=== PATIENT | female | born 1945 | race Caucasian/White ===

== ENCOUNTER 2016-04-23 19:14 | Emergency (ER) | payer MEDICARE, OTHER ==
[2016-04-23 19:24] VITALS: BP 161/79
--- NOTE | 2016-04-23 23:04 | ERNOTE ---
Abdominal HPI - Narrative Date of Service: 04/23/16 - General Chief Complaint: Constipation Time Seen by Provider: 04/23/16 22:55 Source: patient Exam Limitations: no limitations - Immun/Allergies/Home Medications Immunizatons: IMMUNIZATION HX Immunizations Up to Date Yes History of Influenza Vaccine Yes Hx Pneumococcal Vaccination Yes Allergies/Adverse Reactions: Allergies amoxicillin [Amoxicillin] Allergy (Verified 04/23/16 19:26) morphine Allergy (Verified 04/23/16 19:26) Sulfa (Sulfonamide Antibiotics) Allergy (Verified 04/23/16 19:26) Home Medications: HOME MEDICATIONS Atorvastatin Calcium [Lipitor] 20 mg PO DAILY 10/12/14 [Last Taken 07/01/15] Cetirizine HCl [Zyrtec] 10 mg PO DAILY 10/12/14 [Last Taken 07/01/15] Iron Polysaccharide Complex [Novaferrum 50] 150 mg PO DAILY 10/12/14 [Last Taken 07/01/15] Levothyroxine Sodium [Tirosint] 25 mcg PO DAILY 10/12/14 [Last Taken 07/01/15] Olmesartan Medoxomil [Benicar] 50 mg PO DAILY 10/12/14 [Last Taken 07/01/15] Sertraline HCl [Zoloft] 50 mg PO DAILY 10/12/14 [Last Taken 07/01/15] Zolpidem Tartrate [Ambien] 10 mg PO HS 10/12/14 [Last Taken 06/30/15] metFORMIN HCL [Glucophage] 500 mg PO BIDWM 10/12/14 [Last Taken 07/01/15] - History of Present Illness Narrative: Claims has not had a BM for 2 weeks. She has tried a variety of laxatives but they do not seem to be working. She has some lower abdominal pain. Feels bloated. History of constipation. Timing: getting worse Quality: moderate, fullness Activities at Onset: none Associated Symptoms: Present: denies symptoms. Absent: fever/chills, shortness of breath Prior Abdominal Problems: Present: similar symptoms. Absent: recent trauma Prior Treatment: Absent: recently seen Review of Systems - Review of Systems Constitutional: Present: no symptoms reported Respiratory: Present: no symptoms reported Cardiology: Present: no symptoms reported Gastrointestinal/Abdominal: Present: constipation, abdominal pain. Absent: nausea, vomiting, diarrhea Skin: Present: no symptoms reported Neurological: Present: no symptoms reported - Patient's Past Medical History Patient History - Medical: Diabetes Type 2, Hypothyroidism Patient History - Cardiac/Respiratory: Hypertension, Hyperlipidemia Patient History - Cancer: No Hx of Cancer Patient History - Surgical Procedures: Cholecystectomy, Other - Social History Living Situations: significant other Smoking Status: Former smoker Have you smoked in the past 12 months: No Do you dip or chew tobacco: No Alcohol Use: none Drug Use: none Physical Exam - Physical Exam General Appearance: Present: wd/wn, alert, no apparent distress Eye Exam: Normal inspection: bilateral Ears, Nose, Throat: Present: normal ENT inspection Respiratory: Present: no respiratory distress, normal breath sounds, no accessory muscle use, lungs clear Cardiovascular/Chest: Present: regular rate, rhythm, no murmur Gastrointestinal/Abdominal: Present: normal bowel sounds, nontender, soft, no organomegaly, distended - mild Back Exam: Present: normal inspection, no CVA tenderness Neurological Exam: Present: alert Skin Exam: Present: normal color ED Progress - Vital Signs Patient's Vital Signs:: I have reviewed the patient's vital signs. Vital Signs: Vital Signs 04/23/16 19:21 Temperature 35.7 C L Pulse Rate 78 Respiratory 14 Rate Blood Pressure 161/79 O2 Sat by Pulse 97 Oximetry - X-Ray X-Ray #1 X-Ray: abdomen Interpretation: Reviewed by me X-ray Comments: Moderate stool. No obstruction. - Progress/Reassessment Chief Complaint: Constipation Plan - Plan Plan: Patient anxious to get home. She will go home and give self enemas. Use Citroma if needed. FU prn. Departure - Departure Clinical Impression: Constipation Disposition: Home self-care Condition: Good Instructions: Constipation, Adult, [id number] Additional Instructions: Use a fleet enema tonight. You may repeat this as needed. Take a bottle of magnesium citrate tomorrow if your symptoms persist. Referrals: Samson Mead MD [Primary Care Provider] -
== END 2016-04-23 23:14 | disposition home or self-care (01) ==
LOC: ER 19:14
DX: K59.00 Constipation, unspecified (principal); Z87.891 Personal history of nicotine dependence

== ENCOUNTER 2016-05-09 14:27 | Emergency (ER) | payer MEDICARE, OTHER ==
[2016-05-09] MEDS ORDERED: ASPIRIN 325 MG TABLET.DR PO ONE (14:34)
[2016-05-09] MEDS ORDERED: NITROGLYCERIN 0.4 MG/TAB BTL SL ONE (14:35)
[2016-05-09 14:51] LABS: Hematocrit 35.4 % (37.0-47.0); Hemoglobin 10.8 gm/dL (12.5-16.0); Mean Cell Volume 79.9 fl (78-100); Mean Corpuscular Hemoglobin 24.4 pg (27-31); Mean Corpuscular Hgb Conc 30.5 g/dl (32-36); Mean Platelet Volume 9.6 fl (6.0-9.5); Neutrophil # 4.1 K/mm3 (1.3-6.0); Neutrophil % 59.5 % (42-75.0); Platelet Count 180 K/mm3 (150-450); Red Blood Count 4.43 M/mm3 (4.2-5.4); Red Cell Distribution Width 15.5 % (11.5-14.0); White Blood Count 6.9 K/mm3 (4.0-10.5)
--- OUTSIDE RECORDS SUMMARY | 2016-05-09 14:56 | XMS REPORT | Continuity of Care Document ---
:1945 Author Organization [facility] ([facility]) Address [address] [place] [address] Phone [phone] Care Team Providers Name Role Phone Unavailable Primary Care Provider Unavailable Source Comments This disclosure is being made pursuant to the Care Everywhere program, applicable federal and state laws, and may not contain all informaitonavailable regarding this patient.[facility] ([facility]) Active Allergies and Adverse Reactions Not on File Current Medications Not on file Active Problems Not on file Social History Tobacco Use Types Packs/Day Years Used Date Never Assessed Plan of Care Health Maintenance Due Date Last Done Comments HCV Screening 1945 Hepatitis B Vaccine (1 of 3 - Primary Series) 1945 Tdap Vaccine 1956 Lipid Disorder Screening 1963 Td Vaccine 1963 Mammogram 1985 Colonoscopy 1995 Zoster Vaccine 2005 Osteoporosis Screening (DXA Bone Density) 2010 Pneumococcal Vaccine (1 of 2 - PCV13) 2010 Influenza Vaccine: Seasonal (#1) 11/01/2015 Results from Last 3 Months Not on file
[2016-05-09 15:18] LABS: ALT 21 U/L (19-67); AST 27 U/L (0-48); Alkaline Phosphatase * 74 U/L (50-170); Anion Gap 15.1 mmol/L (6.8-13.8); BUN/Creatinine Ratio 24.8 (9.0-21.6); Bilirubin, Total 0.9 mg/dL (0.0-1.1); Blood Urea Nitrogen 25 mg/dL (3-23); Ca. Corrected For Albumin 8.9 mg/dL (8.4-10.2); Calcium * 9.2 mg/dL (7.9-10.9); Carbon Dioxide 25.8 mmol/L (24-32.6); Chloride 106 mmol/L (97-106); Glucose * 119 mg/dL (70-110); Lipase 107 U/L (73-393); Potassium 3.9 mmol/L (3.4-4.6); Sodium 143 mmol/L (132-142); Total Protein 7.3 gm/dL (6.2-8.2); Troponin I Less than 0.017 ng/ml (0.00-0.10)
[2016-05-09 19:05] VITALS: BP 168/82
--- NOTE | 2016-05-09 19:40 | ERNOTE ---
Chest Pain/Cardiac HPI Date of Service: 05/09/16 Chief Complaint: Chest Pain Time Seen by Provider: 05/09/16 14:28 Source: patient Exam Limitations: no limitations Immunizations: IMMUNIZATION HX Immunizations Up to Date Yes History of Influenza Vaccine Yes Hx Pneumococcal Vaccination Yes Allergies/Adverse Reactions: Allergies amoxicillin [Amoxicillin] Allergy (Verified 05/09/16 14:36) morphine Allergy (Verified 05/09/16 14:36) Sulfa (Sulfonamide Antibiotics) Allergy (Verified 05/09/16 14:36) Home Medications: HOME MEDICATIONS Atorvastatin Calcium [Lipitor] 20 mg PO DAILY 10/12/14 [Last Taken 07/01/15] Cetirizine HCl [Zyrtec] 10 mg PO DAILY 10/12/14 [Last Taken 07/01/15] Levothyroxine Sodium [Tirosint] 25 mcg PO DAILY 10/12/14 [Last Taken 07/01/15] Sertraline HCl [Zoloft] 50 mg PO DAILY 10/12/14 [Last Taken 07/01/15] Zolpidem Tartrate [Ambien] 10 mg PO HS 10/12/14 [Last Taken 06/30/15] metFORMIN HCL [Glucophage] 500 mg PO BIDWM 10/12/14 [Last Taken 07/01/15] Losartan Potassium [Cozaar] 100 mg PO DAILY 05/09/16 [Last Taken Unknown] Narrative: Patient presents to the ED for chest pain. This started at 2pm. It was in the center of her chest. It did not seem to radiate but it made her feel SOB. No pleuritic pain. She relates she has not had a recent stress test. She relates an angiogram many years ago. She states she will get some chest pains due to anxiety but today it did not feel like that. No fever. No vomiting. She relates some pain at a hernia in her abdomen but this is not acute. Nothing seems to make this better or worse. Timing: constant Severity/Quality: moderate, pressure Location: central Chest Pain Radiation: no radiation Activities at Onset: none Modifying Factors - Improves: Present: nothing Modifying Factors - Worsens: Present: nothing Aspirin Treatment Today: provided at home Associated Symptoms: Present: shortness of breath. Absent: syncope, cough, fever/chills, vomiting Prior Chest Pain/Cardiac Workup: Reports: other - no recent stress test Review of Systems - Review of Systems Constitutional: Absent: fever ENT: Absent: sore throat Respiratory: Present: shortness of breath Cardiology: Present: chest pain Gastrointestinal/Abdominal: Present: other - she has chronic intermittent abdominal pain at a hernia site, not acute. Genitourinary: Absent: dysuria Musculoskeletal: Present: back pain, other - chronic back pain Skin: Absent: rash All Other Systems: All systems neg except as marked - Patient's Past Medical History Patient History - Medical: Anxiety, Diabetes Type 2, Hypothyroidism Patient History - Cardiac/Respiratory: No pertinent hx, Hypertension, Hyperlipidemia Patient History - Cancer: No Hx of Cancer Patient History - Surgical Procedures: Cholecystectomy, Other Patient History - Other: None - Social History Living Situations: significant other Psych History: Hx of Anxiety Alcohol Use: none Drug Use: none - Immunizations Immunizations Up to Date: Yes Hx Pneumococcal Vaccination: Yes History of Influenza Vaccine: Yes Physical Exam - Physical Exam General Appearance: Present: alert, no apparent distress Eye Exam: Normal inspection: bilateral, PERRL: bilateral Ears, Nose, Throat: Present: normal ENT inspection Neck: Present: normal inspection Respiratory: Present: no respiratory distress, normal breath sounds, no accessory muscle use, chest nontender, lungs clear Cardiovascular/Chest: Present: regular rate, rhythm, normal peripheral pulses Peripheral Pulses: N=norm/S=strong/W=weak/B=bound/A=absent: Radial (R): Normal, Radial (L): Normal Gastrointestinal/Abdominal: Present: normal bowel sounds, nondistended, soft, no organomegaly, other - mild epigastric tenderness. No guarding or rebound, no peritoneal signs. Back Exam: Present: normal range of motion, CVA tenderness (L) Extremity Exam: Present: normal inspection, other - no calf tenderness Neurological Exam: Present: alert, normal mood/affect, no motor/sensory deficits Skin Exam: Absent: skin rash ED Progress - Results and Orders Patient's Lab Results:: I have reviewed the patient's lab results. - Vital Signs Patient's Vital Signs:: I have reviewed the patient's vital signs. Vital Signs: Vital Signs 05/09/16 05/09/16 05/09/16 14:31 14:46 14:57 Temperature 36.2 C L Pulse Rate 71 71 73 Respiratory 19 17 Rate Blood Pressure 149/71 111/68 O2 Sat by Pulse 96 95 Oximetry 02/07/17 02/07/17 02/07/17 15:15 16:00 16:24 Temperature Pulse Rate 66 68 69 Respiratory 19 13 14 Rate Blood Pressure 119/71 147/69 148/73 O2 Sat by Pulse 94 96 95 Oximetry 05/09/16 05/09/16 05/09/16 16:54 17:39 18:09 Temperature Pulse Rate 68 71 69 Respiratory 11 L 22 H 16 Rate Blood Pressure 145/73 156/79 161/89 O2 Sat by Pulse 95 95 97 Oximetry 05/09/16 05/09/16 18:24 18:54 Temperature Pulse Rate 72 73 Respiratory 15 15 Rate Blood Pressure 166/77 168/82 O2 Sat by Pulse 96 95 Oximetry - EKG EKG: NSR EKG read: Reviewed by me EKG Comments: No STEMI. Non-specific ST/T wave changes. - X-Ray X-Ray #1 X-Ray: chest Interpretation: Reviewed by me X-ray Comments: NAPP. I reviewed official radiology report. - CT/Ultrasound CT/Ultrasound Narrative: I reviewed CT chest report dictated by radiology. - Progress/Reassessment Chief Complaint: Chest Pain Progress Note-Subjective: 05/09/16 19:32 Chest pain seemed to go away after NTG. I I spoke with her doctor, Dr Mead who recommended outpatient stress testing. I spoke with Dr Jones economics professor for cardiology at [facility], he will see the patient for stress testing. She wished to go home. I discussed risks and benefits. I obtained a second troponin that was negative given this. She had no recurrent CP. She chose to go home and understands risks and benefits of this approach and of outpatient management and stress testing. No PE or aortic dissection. She had some abdominal pain but relates that this is frequent for her and not why she came in. Once again offered hospital r/o but declines this. Departure - Departure Clinical Impression: Chest pain Disposition: Home self-care Condition: Stable Instructions: Nonspecific Chest Pain, [id number] Additional Instructions: Rest. Fluids. Return if you change your mind about being in the hospital, if you develop chest pain or if your condition worsens or changes in any way. Continue a daily aspirin. Call Dr Jones (Cardiology) in the morning for a stress test, his number is . I spoke with him over the phone today. Referrals: Samson Mead MD [Primary Care Provider] -
== END 2016-05-09 19:37 | disposition home or self-care (01) ==
LOC: ER 14:27
DX: R07.9 Chest pain, unspecified (principal); E11.9 Type 2 diabetes mellitus without complications; F41.9 Anxiety disorder, unspecified; E78.5 Hyperlipidemia, unspecified; E03.9 Hypothyroidism, unspecified; I10 Essential (primary) hypertension

== ENCOUNTER 2016-10-06 08:39 | Day surgery (SDC) | payer MEDICARE, OTHER ==
[~2016-10-06 08:39] MED LIST: RINGERS SOLUTION,LACTATED 1,000 ML IV PRN; ceFAZolin SODIUM 1 GM VIAL IV PRN
[2016-10-06] MEDS ORDERED: RINGERS SOLUTION,LACTATED 1,000 ML IV ONE (10:40)
--- NOTE | 2016-10-06 11:20 | OR ---
Operative Report - Dictated Report Narrative: Date: 10/06/2016 Physician: Zohaib Gunn M.D. 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 Piper Is a 71 year-old female who has been followed in my clinic with complaints of shoulder pain consistent with impingement. Physical exam and diagnostic imaging were consistent with his complaints and concern for degenerative labral tear, chromic clavicular arthrosis resulting impingement and subacromial impingement without any massive rotator cuff tear. Conservative measures have failed including, but not limited to, passage of time , activity modification, medications, physical therapy/home exercise program, or injections. The risks, benefits, and alternatives were discussed in clinic. The risks being , bleeding, infection, blood clots, nerve, tendon, ligament, blood vessel injury, persistent pain, arthrosis, stiffness, need for prolonged therapy, need for additional procedures, and persistent symptoms. Consent was obtained in the clinic. Procedure: After marking the correct extremity in the preoperative holding area, a timeout was performed in the operating room. IV antibiotics consisting of Ancef were administered prior to the procedure. A general followed by regional anesthetic was induced by the nurse battery checker. This was in the supine position, then the patient was transitioned to a beachchair position with all bony prominences well-padded, head in neutral, the nonoperative arm well supported, and the legs padded with SCDs in place. The operative shoulder was then prepped and draped in a standard sterile fashion. Preoperatively the shoulder had full passive range of motion, and no gross instability. After marking out the bony landmarks , saline was infused into the joint through a posterior lateral portal site. A landy incision was made, and the blunt trocar and cannula was introduced into the shoulder joint. An accessory portal was placed in the rotator cuff interval using a spinal needle for guidance. Upon initial evaluation, the biceps tendon showed tendinopathy and partial tear as it inserted on the labrum. The middle glenohumeral ligament was intact. Subscapularis tendon was unremarkable. The glenoid showed no arthrosis. The humeral head articular surface showed at a proximally 1 x 2 cm full-thickness loose chondral flap. The anterior labrum was frayed. The superior labrum was frayed. The pouch was unremarkable. The posterior labrum was unremarkable. The supraspinatus tendon was intact. The infraspinatus tendon was intact. Utilizing the anterior portal the biceps was tenotomized as it inserted on the labrum. The anterior labrum and superior labrum was also debrided using shaver. The shaver was then utilized in order to debride the loose chondral flap off the humeral head down to stable margin. Attention was then turned to the subacromial space. Subacromial bursectomy was performed utilizing the prior portals. The coracoacromial ligament was frayed . The bursal side of the rotator cuff demonstrated no tear. The acromial arch had an anterior lateral spur consistent with her MRI findings. Utilizing a lateral portal, a cautery device was utilized in order to skeletonize the acromion and elevated off the CA ligament. A bur was utilized in order to remove approximately 4-5 mm of bone off the anterior lateral aspect of the acromion resulting in a flattened overall acromial appearance. Attention was then turned to the distal clavicle. A longitudinal incision was made over the acromioclavicular joint. This was sharply dissected down to the chromic clavicular capsule. Cautery was utilized for hemostasis. A longitudinal capsulotomy was made and elevated off the anterior posterior aspects of the distal clavicle. There is notable hypertrophic bone and loss of joint space between the acromion and clavicle. Protecting the surrounding soft tissues, an oscillating saw was utilized in order to resect approximately 7-10 mm of bone from the distal clavicle. The remaining clavicle was stable after removing this. The shoulders place a range of motion and showed no remaining impingement between the acromion and the clavicle. Wounds were then thoroughly irrigated. The capsule was closed with interrupted 0 Vicryl to subcutaneous tissue with 3-0 Vicryl. Skin was closed with 4-0 nylon. The portal sites were closed with interrupted nylon. Dressings consisting of Xeroform, 4 x 4, ABD, soft roll, and tape were applied. All sponge, needle, blade, and instrument counts were correct prior to closing the wounds. The patient was awoken and transferred to the postanesthesia care unit in stable condition.
[2016-10-06 13:15] VITALS: BP 156/87
== END 2016-10-06 08:40 | disposition home or self-care (01) ==
LOC: AMB 08:39
PROVIDERS: ATTEND Orthopaedic Surgery
PROC: 0RNK4ZZ Release Left Shoulder Joint, Percutaneous Endoscopic Approach (ICD-10-PCS; 2016-10-06)
PROC: 0PBB0ZZ Excision of Left Clavicle, Open Approach (ICD-10-PCS; 2016-10-06)
PROC: 0RBK4ZZ Excision of Left Shoulder Joint, Percutaneous Endoscopic Approach (ICD-10-PCS; principal; 2016-10-06 10:45)
DX: M19.012 Primary osteoarthritis, left shoulder (principal); S43.492A Other sprain of left shoulder joint, initial encounter; M75.22 Bicipital tendinitis, left shoulder; M75.42 Impingement syndrome of left shoulder; M94.212 Chondromalacia, left shoulder; I10 Essential (primary) hypertension; E11.9 Type 2 diabetes mellitus without complications; E03.9 Hypothyroidism, unspecified; D64.9 Anemia, unspecified; K21.9 Gastro-esophageal reflux disease without esophagitis; E78.5 Hyperlipidemia, unspecified; F32.9 Major depressive disorder, single episode, unspecified; Z87.891 Personal history of nicotine dependence; Z68.26 Body mass index [BMI] 26.0-26.9, adult

== ENCOUNTER 2016-12-27 13:59 | Emergency (ER) | payer MEDICARE, OTHER ==
[2016-12-27] MEDS ORDERED: KETOROLAC TROMETHAMINE 60 MG/2 ML VIAL IM ONE ×2 (14:38→14:44)
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
[2016-12-27] MEDS ORDERED: DIPHTH,PERTUSS(ACELL),TET VAC 0.5 ML VIAL IM ONE ×2 (14:54→15:48)
[2016-12-27] MEDS ORDERED: oxyCODONE HCL/ACETAMINOPHEN 1 TAB TABLET PO ONE (15:44)
[2016-12-27] MEDS ORDERED: oxyCODONE HCL/ACETAMINOPHEN 1 TAB TABLET ONE (15:48)
[2016-12-27 16:46] VITALS: BP 135/70
== END 2016-12-27 16:42 | disposition home or self-care (01) ==
LOC: ER 13:59
PROC: 2W3CX1Z Immobilization of Right Lower Arm using Splint (ICD-10-PCS; principal; 2016-12-27)
DX: S62.101A Fracture of unspecified carpal bone, right wrist, initial encounter for closed fracture (principal); S00.03XA Contusion of scalp, initial encounter; W10.1XXA Fall (on)(from) sidewalk curb, initial encounter; Z91.81 History of falling; Y93.89 Activity, other specified; Y92.480 Sidewalk as the place of occurrence of the external cause; D64.9 Anemia, unspecified; E11.9 Type 2 diabetes mellitus without complications; K21.9 Gastro-esophageal reflux disease without esophagitis; E03.9 Hypothyroidism, unspecified; I10 Essential (primary) hypertension; E78.5 Hyperlipidemia, unspecified; Z23 Encounter for immunization; S50.311A Abrasion of right elbow, initial encounter

== ENCOUNTER 2017-02-10 17:56 | Emergency (ER) | payer MEDICARE, OTHER ==
[2017-02-10 19:01] LABS: Hematocrit 33.8 % (37.0-47.0); Hemoglobin 10.3 gm/dL (12.5-16.0); Mean Cell Volume 80.1 fl (78-100); Mean Corpuscular Hemoglobin 24.4 pg (27-31); Mean Corpuscular Hgb Conc 30.5 g/dl (32-36); Mean Platelet Volume 9.6 fl (6.0-9.5); Neutrophil # 4.1 K/mm3 (1.3-6.0); Neutrophil % 63.8 % (42-75.0); Platelet Count 234 K/mm3 (150-450); Red Blood Count 4.22 M/mm3 (4.2-5.4); Red Cell Distribution Width 15.7 % (11.5-14.0); White Blood Count 6.5 K/mm3 (4.0-10.5)
[2017-02-10 19:18] LABS: ALT 18 U/L (19-67); AST 19 U/L (0-48); Albumin * 3.9 gm/dl (3.4-5.0); Alkaline Phosphatase * 65 U/L (50-170); Anion Gap 12.9 mmol/L (6.8-13.8); BUN/Creatinine Ratio 15.6 (9.0-21.6); Bilirubin, Total 0.7 mg/dL (0.0-1.1); Blood Urea Nitrogen 15 mg/dL (3-23); Ca. Corrected For Albumin 9.3 mg/dL (8.4-10.2); Calcium * 9.5 mg/dL (7.9-10.9); Carbon Dioxide 28.2 mmol/L (24-32.6); Chloride 105 mmol/L (97-106); Glucose * 118 mg/dL (70-110); Potassium 4.1 mmol/L (3.4-4.6); Sodium 142 mmol/L (132-142); Total Protein 7.2 gm/dL (6.2-8.2); Troponin I Less than 0.017 ng/ml (0.00-0.10)
[2017-02-10] MEDS ORDERED: KETOROLAC TROMETHAMINE 30 MG/ML VIAL IV ONE (19:39)
[2017-02-10] MEDS ORDERED: KETOROLAC TROMETHAMINE 30 MG/ML VIAL ONE (19:40)
--- NOTE | 2017-02-10 19:41 | ERNOTE ---
Chest Pain/Cardiac HPI Date of Service: 02/10/17 Chief Complaint: Chest Pain Time Seen by Provider: 02/10/17 18:26 Source: patient, family, RN notes reviewed, past records Exam Limitations: no limitations Immunizations: IMMUNIZATION HX Immunizations Up to Date No: unknown History of Influenza Vaccine Yes Hx Pneumococcal Vaccination No Allergies/Adverse Reactions: Allergies morphine Allergy (Intermediate, Verified 12/27/16 14:11) DIFF BREATHING HEATHER Inhibitors Adverse Reaction (Mild, Verified 12/27/16 14:11) COUGH nitrofurantoin [From Macrobid] Adverse Reaction (Mild, Verified 12/27/16 14:11) STOMACH PAIN Sulfa (Sulfonamide Antibiotics) Adverse Reaction (Mild, Verified 12/27/16 14:11) JOINT PAIN Home Medications: HOME MEDICATIONS Atorvastatin Calcium [Lipitor] 20 mg PO DAILY 10/12/14 [Last Taken 07/01/15] Sertraline HCl [Zoloft] 50 mg PO DAILY 10/12/14 [Last Taken 07/01/15] Zolpidem Tartrate [Ambien] 10 mg PO HS 10/12/14 [Last Taken 06/30/15] metFORMIN HCL [Glucophage] 500 mg PO BIDWM 10/12/14 [Last Taken 07/01/15] Losartan Potassium [Cozaar] 100 mg PO DAILY 05/09/16 [Last Taken Unknown] Blood-Glucose Meter [Blood Glucose Monitoring] 1 each MC DAILY 09/21/16 [Last Taken Unknown] Diazepam [Valium] 5 mg PO QAM 09/21/16 [Last Taken Unknown] Diazepam [Valium] 10 mg PO HS 09/21/16 [Last Taken Unknown] Estrogens, Conjugated [Premarin] 1 applic VG 2XW 09/21/16 [Last Taken Unknown] Levothyroxine Sodium [Synthroid] 25 mcg PO DAILY 09/21/16 [Last Taken Unknown] Tazarotene [Tazorac] 1 applic TP DAILY 09/21/16 [Last Taken Unknown] Wheat Dextrin [Benefiber] 1 tbs PO DAILY 09/21/16 [Last Taken Unknown] Montelukast Sodium [Singulair] 10 mg PO DAILY 02/10/17 [Last Taken Unknown] Narrative: 71 year old female with pain across her chest that began this morning. She has had this pain several times before, but today she was diaphoretic with it so she became concerned. She has been evaluated for this in the past without any etiology determined. She denies any additional symptoms. Date (Duration): 02/10/17 Time (Timing): 11:00 Severity/Quality: moderate, aching, dull Location: other - Across entire chest Chest Pain Radiation: no radiation Activities at Onset: none Nitro Today/Relief: no nitro taken today Aspirin Treatment Today: no aspirin today Prior Chest Pain/Cardiac Workup: Reports: prior chest pain, non-cardiac Prior Treatment: Reports: recently seen Review of Systems - Review of Systems Constitutional: Present: decreased activity level. Absent: recent illness, fever, chills, malaise EYE: Present: no symptoms reported ENT: Absent: nose congestion, sore throat Respiratory: Absent: shortness of breath, cough Cardiology: Present: chest pain. Absent: palpitations, syncope, edema Gastrointestinal/Abdominal: Absent: nausea, abdominal pain Genitourinary: Present: no symptoms reported Musculoskeletal: Absent: back pain, neck pain Skin: Absent: rash, lesions, lumps Neurological: Absent: weakness, numbness, tingling Endocrine: Present: no symptoms reported Hematologic/Lymphatic: Absent: easy bruising, easy bleeding Psych: Present: anxiety - Patient's Past Medical History Patient History - Medical: Anemia, Anxiety, Diabetes Type 2, Depression, GERD, Hypothyroidism, Kidney stone, UTI'S Patient History - Cardiac/Respiratory: No pertinent hx, Hypertension, Hyperlipidemia Patient History - Cancer: No Hx of Cancer Patient History - Surgical Procedures: Cataracts, Cholecystectomy, Other, Hernia Repair, Orthopedic, Urology Patient History - Other: None - Family History Mother Family History - Medical: , Diabetes Type 2 Family History - Cardiac/Respiratory: CVA/Stroke, Hypertension Family History - Cancer: No pertinent family hx Father Family History - Medical: , No pertinent hx Family History - Cardiac/Respiratory: CHF, COPD Family History - Cancer: No pertinent family hx Sister Family History - Medical: Arthritis, Diabetes Type 2, Dementia Family History - Cardiac/Respiratory: No pertinent hx Family History - Cancer: No pertinent family hx Brother Family History - Medical: , Alcohol Abuse, Alzheimer's Disease, Diabetes Type 2, Dementia Family History - Cardiac/Respiratory: Coronary Heart Disease Family History - Cancer: No pertinent family hx - Social History Living Situations: spouse Abuse History: No History of abuse Psych History: Hx of Anxiety, Hx of Depression, Current tx/ever been on anti- depressants or anti-anxiety meds Smoking Status: Former smoker Have you smoked in the past 12 months: No Do you dip or chew tobacco: No Alcohol Use: none Drug Use: none - Immunizations Immunizations Up to Date: No - unknown Hx Pneumococcal Vaccination: No History of Influenza Vaccine: Yes Physical Exam - Physical Exam General Appearance: Present: wd/wn, alert, no apparent distress, anxious Head Exam: Present: normal inspection Eye Exam: Normal inspection: bilateral Ears, Nose, Throat: Present: normal ENT inspection, normal pharynx Neck: Present: normal inspection, nontender, supple Respiratory: Present: no respiratory distress, normal breath sounds, no accessory muscle use, lungs clear, chest tenderness - Anterior chest at bilateral sternal borders Cardiovascular/Chest: Present: regular rate, rhythm, no murmur, normal peripheral pulses Gastrointestinal/Abdominal: Present: nontender, nondistended, soft Back Exam: Present: normal inspection, no vertebral tenderness Extremity Exam: Present: normal except - - Right wrist casted Neurological Exam: Present: alert, oriented, normal mood/affect, no motor/ sensory deficits Skin Exam: Present: normal color, warm/dry ED Progress - Results and Orders Patient's Lab Results:: I have reviewed the patient's lab results. - Vital Signs Patient's Vital Signs:: I have reviewed the patient's vital signs. Vital Signs: Vital Signs 02/10/17 02/10/17 02/10/17 18:07 18:30 19:05 Temperature 36.7 C Pulse Rate 76 72 72 Respiratory 20 18 16 Rate Blood Pressure 146/78 145/70 153/77 O2 Sat by Pulse 99 98 98 Oximetry 02/10/17 19:20 Temperature Pulse Rate 70 Respiratory 18 Rate Blood Pressure 144/72 O2 Sat by Pulse 99 Oximetry - EKG EKG: NSR, RBBB EKG read: Reviewed by me - X-Ray X-Ray #1 X-Ray: chest Interpretation: Reviewed by me X-ray Comments: No acute findings - Progress/Reassessment Chief Complaint: Chest Pain Progress:: Improved Departure Clinical Impression: Chest pain Qualifiers: Chest pain type: unspecified Qualified Code(s): R07.9 - Chest pain, unspecified - Departure Disposition: Home Follow Up Needed Condition: Good Instructions: Chest Wall Pain Additional Instructions: Continue your routine medications Return to the ER if your symptoms worsen Referrals: Samson Mead MD [Primary Care Provider] -
[2017-02-10 20:01] VITALS: BP 136/75
== END 2017-02-10 19:42 | disposition home or self-care (01) ==
LOC: ER 17:56
DX: R07.9 Chest pain, unspecified (principal); Z87.440 Personal history of urinary (tract) infections; Z87.442 Personal history of urinary calculi; Z87.891 Personal history of nicotine dependence; E11.9 Type 2 diabetes mellitus without complications; F32.9 Major depressive disorder, single episode, unspecified; E03.9 Hypothyroidism, unspecified; I10 Essential (primary) hypertension; E78.5 Hyperlipidemia, unspecified

== ENCOUNTER 2017-02-20 20:12 | Emergency (ER) | payer MEDICARE, OTHER ==
--- NOTE | 2017-02-20 20:55 | ERNOTE ---
Abdominal HPI - General Chief Complaint: Abdominal Pain Time Seen by Provider: 02/20/17 20:46 Source: patient, family Exam Limitations: no limitations - Immun/Allergies/Home Medications Immunizatons: IMMUNIZATION HX Immunizations Up to Date No: unknown History of Influenza Vaccine Yes Hx Pneumococcal Vaccination Yes Allergies/Adverse Reactions: Allergies morphine Adverse Reaction (Intermediate, Verified 02/20/17 20:40) DIFF BREATHING HEATHER Inhibitors Adverse Reaction (Mild, Verified 12/27/16 14:11) COUGH nitrofurantoin [From Macrobid] Adverse Reaction (Mild, Verified 12/27/16 14:11) STOMACH PAIN Sulfa (Sulfonamide Antibiotics) Adverse Reaction (Mild, Verified 12/27/16 14:11) JOINT PAIN Home Medications: HOME MEDICATIONS Atorvastatin Calcium [Lipitor] 20 mg PO DAILY 10/12/14 [Last Taken 07/01/15] Sertraline HCl [Zoloft] 50 mg PO DAILY 10/12/14 [Last Taken 07/01/15] Zolpidem Tartrate [Ambien] 10 mg PO HS 10/12/14 [Last Taken 06/30/15] metFORMIN HCL [Glucophage] 500 mg PO BIDWM 10/12/14 [Last Taken 07/01/15] Losartan Potassium [Cozaar] 100 mg PO DAILY 05/09/16 [Last Taken Unknown] Blood-Glucose Meter [Blood Glucose Monitoring] 1 each MC DAILY 09/21/16 [Last Taken Unknown] Diazepam [Valium] 5 mg PO QAM 09/21/16 [Last Taken Unknown] Diazepam [Valium] 10 mg PO HS 09/21/16 [Last Taken Unknown] Estrogens, Conjugated [Premarin] 1 applic VG 2XW 09/21/16 [Last Taken Unknown] Levothyroxine Sodium [Synthroid] 25 mcg PO DAILY 09/21/16 [Last Taken Unknown] Tazarotene [Tazorac] 1 applic TP DAILY 09/21/16 [Last Taken Unknown] Wheat Dextrin [Benefiber] 1 tbs PO DAILY 09/21/16 [Last Taken Unknown] Montelukast Sodium [Singulair] 10 mg PO DAILY 02/10/17 [Last Taken Unknown] Cholecalciferol (Vitamin D3) [Vitamin D3] 1,000 unit PO DAILY 02/20/17 [Last Taken Unknown] Polyethylene Glycol 3350 [Miralax] 17 gm PO DAILY 02/20/17 [Last Taken Unknown] - History of Present Illness Narrative: has had abdominal discomfort for approx 3 weeks. Has been on oxycodone due to a right wrist fracture. Has tried fiber laxative and miralax with only minimal results. Timing: getting worse Quality: moderate Modifying Factors - (Worsens): Present: analgesics Associated Symptoms: Present: back pain Prior Abdominal Problems: Present: none Review of Systems - Review of Systems Constitutional: Present: no symptoms reported EYE: Present: no symptoms reported ENT: Present: no symptoms reported Respiratory: Absent: shortness of breath Cardiology: Absent: chest pain Gastrointestinal/Abdominal: Present: See HPI, nausea, constipation. Absent: vomiting Genitourinary: Present: no symptoms reported Musculoskeletal: Present: back pain Skin: Present: no symptoms reported Neurological: Present: no symptoms reported Endocrine: Present: no symptoms reported Hematologic/Lymphatic: Present: no symptoms reported Psych: Present: no symptoms reported - Patient's Past Medical History Patient History - Medical: Anemia, Anxiety, Diabetes Type 2, Depression, GERD, Hypothyroidism, Kidney stone, UTI'S Patient History - Cardiac/Respiratory: No pertinent hx, Hypertension, Hyperlipidemia Patient History - Cancer: No Hx of Cancer Patient History - Surgical Procedures: Cataracts, Cholecystectomy, Other, Hernia Repair, Orthopedic, Urology Patient History - Other: None - Family History Mother Family History - Medical: , Diabetes Type 2 Family History - Cardiac/Respiratory: CVA/Stroke, Hypertension Family History - Cancer: No pertinent family hx Father Family History - Medical: , No pertinent hx Family History - Cardiac/Respiratory: CHF, COPD Family History - Cancer: No pertinent family hx Sister Family History - Medical: Arthritis, Diabetes Type 2, Dementia Family History - Cardiac/Respiratory: No pertinent hx Family History - Cancer: No pertinent family hx Brother Family History - Medical: , Alcohol Abuse, Alzheimer's Disease, Diabetes Type 2, Dementia Family History - Cardiac/Respiratory: Coronary Heart Disease Family History - Cancer: No pertinent family hx - Social History Living Situations: spouse Abuse History: No History of abuse Psych History: Hx of Anxiety, Hx of Depression, Current tx/ever been on anti- depressants or anti-anxiety meds Smoking Status: Former smoker Have you smoked in the past 12 months: No Do you dip or chew tobacco: No Patient requests Smoking Cessation Consult: No Initiate information on Smoking Cessation: No Alcohol Use: none Drug Use: none - Immunizations Immunizations Up to Date: No - unknown Hx Pneumococcal Vaccination: Yes History of Influenza Vaccine: Yes Physical Exam - Physical Exam General Appearance: Present: wd/wn, alert, no apparent distress Head Exam: Present: normal inspection, no evidence of injury Neck: Present: normal inspection, nontender Respiratory: Present: no respiratory distress, normal breath sounds, no accessory muscle use, lungs clear Cardiovascular/Chest: Present: regular rate, rhythm, no murmur, normal peripheral pulses Gastrointestinal/Abdominal: Present: normal bowel sounds, tenderness - b/l upper quads Extremity Exam: Present: normal inspection, normal range of motion Neurological Exam: Present: alert, oriented, normal mood/affect, no motor/ sensory deficits Skin Exam: Present: normal color, warm/dry Lymphatic Exam: Present: no adenopathy ED Progress - Results and Orders Patient's Lab Results:: I have reviewed the patient's lab results. Results and Orders: Laboratory Tests 02/20/17 02/20/17 20:56 20:56 WBC 6.4 Hgb 10.4 L Hct 34.7 L Plt Count 214 Sodium 140 Potassium 4.0 Chloride 104 Carbon Dioxide 28.7 Anion Gap 11.3 BUN 20 Creatinine 0.85 Est GFR (Non-Af Amer) 70 Random Glucose 115 H Calcium 9.8 Total Bilirubin 0.6 AST 16 ALT 15 L Alkaline Phosphatase 68 Total Protein 7.3 Albumin 3.7 - Vital Signs Patient's Vital Signs:: I have reviewed the patient's vital signs. Vital Signs: Vital Signs 02/20/17 20:30 Temperature 36.5 C Pulse Rate 76 Respiratory 18 Rate Blood Pressure 145/83 O2 Sat by Pulse 99 Oximetry - X-Ray X-Ray #1 X-Ray: abdomen Interpretation: Reviewed by me X-ray Comments: flat and upright abdomen: Findings: There are small amounts of gas identified within the bowel. I do not see evidence for gaseous dilatation of the bowel, air-fluid levels, or free air. The visualized lung bases are clear. I am not convinced of calcified radiodensities overlying the kidneys. IMPRESSION: 1. NONSPECIFIC BOWEL GAS PATTERN Electronically signed by Mike Lancaster M.D.. - Progress/Reassessment Chief Complaint: Abdominal Pain Departure Clinical Impression: Constipation Qualifiers: Constipation type: drug induced constipation Qualified Code(s): K59.03 - Drug induced constipation - Departure Disposition: Home self-care Condition: Good Instructions: Constipation, Adult, [id number] Additional Instructions: continue to take fiber supplement to keep your bowels moving Referrals: Samson Mead MD [Primary Care Provider] -
[2017-02-20 21:04] LABS: Hematocrit 34.7 % (37.0-47.0); Hemoglobin 10.4 gm/dL (12.5-16.0); Mean Cell Volume 81.3 fl (78-100); Mean Corpuscular Hemoglobin 24.4 pg (27-31); Mean Platelet Volume 9.7 fl (6.0-9.5); Neutrophil # 3.7 K/mm3 (1.3-6.0); Neutrophil % 58.1 % (42-75.0); Platelet Count 214 K/mm3 (150-450); Red Blood Count 4.27 M/mm3 (4.2-5.4); White Blood Count 6.4 K/mm3 (4.0-10.5)
[2017-02-20 21:17] LABS: Albumin * 3.7 gm/dl (3.4-5.0); Anion Gap 11.3 mmol/L (6.8-13.8); BUN/Creatinine Ratio 23.5 (9.0-21.6); Bilirubin, Total 0.6 mg/dL (0.0-1.1); Ca. Corrected For Albumin 9.7 mg/dL (8.4-10.2); Calcium * 9.8 mg/dL (7.9-10.9); Carbon Dioxide 28.7 mmol/L (24-32.6); Total Protein 7.3 gm/dL (6.2-8.2)
[2017-02-20] MEDS ORDERED: MAGNESIUM HYDROXIDE 30 ML UDC PO ONE (23:01)
[2017-02-20] MEDS ORDERED: MAGNESIUM HYDROXIDE 30 ML UDC ONE (23:02)
[2017-02-20 23:12] VITALS: BP 134/78
== END 2017-02-20 23:05 | disposition home or self-care (01) ==
LOC: ER 20:12
DX: K59.03 Drug induced constipation (principal); D64.9 Anemia, unspecified; E11.9 Type 2 diabetes mellitus without complications; K21.9 Gastro-esophageal reflux disease without esophagitis; E03.9 Hypothyroidism, unspecified; I10 Essential (primary) hypertension; E78.5 Hyperlipidemia, unspecified; F41.8 Other specified anxiety disorders

== ENCOUNTER 2017-04-12 21:25 | Emergency (ER) | payer MEDICARE, OTHER ==
[2017-04-12 22:08] VITALS: BP 147/99
[2017-04-12 22:22] LABS: Hematocrit 35.9 % (37.0-47.0); Mean Cell Volume 79.2 fl (78-100); Mean Corpuscular Hemoglobin 24.3 pg (27-31); Mean Corpuscular Hgb Conc 30.6 g/dl (32-36); Neutrophil # 3.8 K/mm3 (1.3-6.0); Neutrophil % 60.5 % (42-75.0); Platelet Count 211 K/mm3 (150-450); Red Blood Count 4.53 M/mm3 (4.2-5.4); Red Cell Distribution Width 15.7 % (11.5-14.0); White Blood Count 6.3 K/mm3 (4.0-10.5)
[2017-04-12 22:35] LABS: ALT 21 U/L (19-67); AST 18 U/L (0-48); Albumin * 4.4 gm/dl (3.4-5.0); Alkaline Phosphatase * 66 U/L (50-170); Amylase * 34 U/L (25-115); BUN/Creatinine Ratio 17.6 (9.0-21.6); Bilirubin, Total 0.6 mg/dL (0.0-1.1); Blood Urea Nitrogen 18 mg/dL (3-23); Calcium * 9.6 mg/dL (7.9-10.9); Chloride 100 mmol/L (97-106); Glucose * 113 mg/dL (70-110); Lipase 127 U/L (73-393); Potassium 3.5 mmol/L (3.4-4.6); Sodium 134 mmol/L (132-142); Total Protein 7.8 gm/dL (6.2-8.2)
[2017-04-12 22:36] LABS: Urine Bilirubin Negative (NEGATIVE); Urine Blood Negative /ul (NEGATIVE); Urine Ketone Negative (NEGATIVE); Urine Nitrite Negative (NEGATIVE); Urine Protein Negative (NEGATIVE); Urine Urobilinogen Normal (NORMAL)
[2017-04-12 22:40] LABS: Anion Gap 7.1 mmol/L (6.8-13.8); Carbon Dioxide 30.4 mmol/L (24-32.6)
--- NOTE | 2017-04-12 22:50 | ERNOTE ---
Abdominal HPI - Narrative Date of Service: 04/12/17 - General Chief Complaint: Abdominal Pain Time Seen by Provider: 04/12/17 22:47 Source: patient - Immun/Allergies/Home Medications Immunizatons: IMMUNIZATION HX Immunizations Up to Date Yes History of Influenza Vaccine No Hx Pneumococcal Vaccination No Allergies/Adverse Reactions: Allergies morphine Adverse Reaction (Intermediate, Verified 04/12/17 22:09) DIFF BREATHING HEATHER Inhibitors Adverse Reaction (Mild, Verified 04/12/17 22:09) COUGH nitrofurantoin [From Macrobid] Adverse Reaction (Mild, Verified 04/12/17 22:09) STOMACH PAIN Sulfa (Sulfonamide Antibiotics) Adverse Reaction (Mild, Verified 04/12/17 22:09) JOINT PAIN Home Medications: HOME MEDICATIONS Atorvastatin Calcium [Lipitor] 20 mg PO DAILY 10/12/14 [Last Taken 07/01/15] Sertraline HCl [Zoloft] 50 mg PO DAILY 10/12/14 [Last Taken 07/01/15] Zolpidem Tartrate [Ambien] 10 mg PO HS 10/12/14 [Last Taken 06/30/15] metFORMIN HCL [Glucophage] 500 mg PO BIDWM 10/12/14 [Last Taken 07/01/15] Losartan Potassium [Cozaar] 100 mg PO DAILY 05/09/16 [Last Taken Unknown] Blood-Glucose Meter [Blood Glucose Monitoring] 1 each MC DAILY 09/21/16 [Last Taken Unknown] Diazepam [Valium] 5 mg PO QAM 09/21/16 [Last Taken Unknown] Diazepam [Valium] 10 mg PO HS 09/21/16 [Last Taken Unknown] Estrogens, Conjugated [Premarin] 1 applic VG 2XW 09/21/16 [Last Taken Unknown] Levothyroxine Sodium [Synthroid] 25 mcg PO DAILY 09/21/16 [Last Taken Unknown] Tazarotene [Tazorac] 1 applic TP DAILY 09/21/16 [Last Taken Unknown] Wheat Dextrin [Benefiber] 1 tbs PO DAILY 09/21/16 [Last Taken Unknown] Montelukast Sodium [Singulair] 10 mg PO DAILY 02/10/17 [Last Taken Unknown] Cholecalciferol (Vitamin D3) [Vitamin D3] 1,000 unit PO DAILY 02/20/17 [Last Taken Unknown] Polyethylene Glycol 3350 [Miralax] 17 gm PO DAILY 02/20/17 [Last Taken Unknown] Ciprofloxacin HCl 500 mg PO BID 7 Days tablet 04/12/17 [Last Taken Unknown] - History of Present Illness Narrative: This is a 72-year-old female comes to the emergency department complaining of a burning abdominal pain which is primarily in the epigastric area. She has never had this pain before. It started earlier today. It has not changed throughout the day. She has been eating and has no change. She has not had any nausea or vomiting no diarrhea no blood in her stool no true chest pain no true shortness of breath no coughing or fever. The patient says that she has a supraumbilical hernia which she is scheduled to have surgery repaired on Sunday. The patient says she has no other symptoms with this. She has had a hernia in the past and has never had these symptoms. She got to thinking this evening she was worried that there might be something wrong and that she needed to get treated. She decided to come in rather than going to bed and having something potentially serious going on. She has no other complaints Review of Systems - Review of Systems Constitutional: Present: no symptoms reported EYE: Present: no symptoms reported ENT: Present: no symptoms reported Respiratory: Present: no symptoms reported Cardiology: Present: no symptoms reported Gastrointestinal/Abdominal: Present: See HPI. Absent: nausea, vomiting, diarrhea Genitourinary: Present: no symptoms reported Musculoskeletal: Present: no symptoms reported Skin: Present: no symptoms reported Neurological: Present: no symptoms reported Endocrine: Present: no symptoms reported Hematologic/Lymphatic: Present: no symptoms reported Psych: Present: no symptoms reported All Other Systems: All systems neg except as marked - Patient's Past Medical History Patient History - Medical: Anemia, Anxiety, Diabetes Type 2, Depression, GERD, Hypothyroidism, Kidney stone, UTI'S Patient History - Cardiac/Respiratory: No pertinent hx, Hypertension, Hyperlipidemia Patient History - Cancer: No Hx of Cancer Patient History - Surgical Procedures: Cataracts, Cholecystectomy, Other, Hernia Repair, Orthopedic, Urology Patient History - Other: None LMP (females 10-50): Menopausal - Family History Mother Family History - Medical: , Diabetes Type 2 Family History - Cardiac/Respiratory: CVA/Stroke, Hypertension Family History - Cancer: No pertinent family hx Father Family History - Medical: , No pertinent hx Family History - Cardiac/Respiratory: CHF, COPD Family History - Cancer: No pertinent family hx Sister Family History - Medical: Arthritis, Diabetes Type 2, Dementia Family History - Cardiac/Respiratory: No pertinent hx Family History - Cancer: No pertinent family hx Brother Family History - Medical: , Alcohol Abuse, Alzheimer's Disease, Diabetes Type 2, Dementia Family History - Cardiac/Respiratory: Coronary Heart Disease Family History - Cancer: No pertinent family hx - Social History Living Situations: home Abuse History: No History of abuse Psych History: Hx of Anxiety, Hx of Depression, Current tx/ever been on anti- depressants or anti-anxiety meds Smoking Status: Former smoker Alcohol Use: none Drug Use: none - Immunizations Immunizations Up to Date: Yes Hx Pneumococcal Vaccination: No History of Influenza Vaccine: No Physical Exam - Physical Exam General Appearance: Present: wd/wn, alert, no apparent distress Head Exam: Present: normal inspection, no evidence of injury Eye Exam: Normal inspection: bilateral Ears, Nose, Throat: Present: normal ENT inspection, normal pharynx Neck: Present: normal inspection, nontender Respiratory: Present: no respiratory distress, normal breath sounds, no accessory muscle use, lungs clear Cardiovascular/Chest: Present: regular rate, rhythm, no murmur, normal peripheral pulses Gastrointestinal/Abdominal: Present: normal bowel sounds, nondistended, soft, no organomegaly, other - patient has a noticeable supraumbilical midline hernia. There is some protrusion of intra-abdominal contents through this. It is easily reducible. It is tender in this area. She has absolutely no tenderness in any other parts of her abdomen. No guarding no rebound Back Exam: Present: normal inspection, normal range of motion, no vertebral tenderness Extremity Exam: Present: normal inspection, normal range of motion, no edema Neurological Exam: Present: alert, oriented, normal mood/affect, no motor/ sensory deficits Skin Exam: Present: normal color, warm/dry Lymphatic Exam: Present: no adenopathy ED Progress - Results and Orders Patient's Lab Results:: I have reviewed the patient's lab results. - Vital Signs Patient's Vital Signs:: I have reviewed the patient's vital signs. Vital Signs: Vital Signs 04/12/17 22:04 Temperature 36.6 C Pulse Rate 79 Respiratory 15 Rate Blood Pressure 147/99 O2 Sat by Pulse 100 Oximetry - EKG EKG: NSR, other EKG read: Interp. by me EKG Comments: Normal sinus rhythm normal axis normal intervals no acute ischemic changes right ventricular conduction delay Q wave in lead 3 which is non-specific - X-Ray X-Ray #1 X-Ray: abdomen Interpretation: Interp. by me X-ray Comments: Significant stool retention, no signs of obstruction. Nonspecific bowel gas pattern - Progress/Reassessment Chief Complaint: Abdominal Pain Progress:: Unchanged Departure Clinical Impression: Abdominal pain, Urinary tract infection - Departure Disposition: Home self-care Condition: Stable Instructions: Urinary Tract Infection, Adult, [id number] Additional Instructions: As we have discussed, he did have a bladder infection. IV antibiotics. This should take care of it. Take them for all 7 days even if you feel better after only 1 or 2. I believe the ear pain is coming from your hernia. I suspect that the hernia is causing irritation of the nerves of your abdominal wall. This may cause a burning type sensation. Habits surgery done as scheduled next week. Next If you develop fever, vomiting, blood in her stool, chest pain or any other concerning symptoms and what you to return to the ER. Otherwise she should follow up with your family doctor Referrals: Samson Mead MD [Primary Care Provider] - Prescriptions: Ciprofloxacin HCl 500 mg PO BID 7 Days tablet
[2017-04-12 22:55] LABS: Urine Appearance Slightly Cloudy; Urine Bacteria 1+; Urine Color Pale Yellow
[2017-04-12 23:11] LABS: Troponin I Less than 0.017 ng/ml (0.00-0.10)
[2017-04-12] MEDS ORDERED: SULFAMETHOXAZOLE/TRIMETHOPRIM 1 TAB TABLET PO ONE (23:23)
[2017-04-12] MEDS ORDERED: SULFAMETHOXAZOLE/TRIMETHOPRIM 1 TAB TABLET ONE (23:30)
[2017-04-12] MEDS ORDERED: CIPROFLOXACIN HCL 250 MG TABLET ONE (23:34)
[2017-04-12] MEDS ORDERED: CIPROFLOXACIN HCL 250 MG TABLET PO ONE (23:34)
== END 2017-04-12 23:38 | disposition home or self-care (01) ==
LOC: ER 21:25
DX: N39.0 Urinary tract infection, site not specified (principal); R10.9 Unspecified abdominal pain; Z87.440 Personal history of urinary (tract) infections; Z87.442 Personal history of urinary calculi; Z87.891 Personal history of nicotine dependence

== ENCOUNTER 2017-05-05 10:34 | Emergency (ER) | payer MEDICARE, OTHER ==
[2017-05-05] MEDS ORDERED: HYDROmorphone HCL 1 MG/ML DISP.SYRIN IV ONE (10:59)
[2017-05-05] MEDS ORDERED: METOCLOPRAMIDE HCL 5 MG/ML VIAL IV ONE (10:59)
[2017-05-05] MEDS ORDERED: HYDROmorphone HCL 2 MG/ML VIAL ONE (11:11)
[2017-05-05] MEDS ORDERED: METOCLOPRAMIDE HCL 5 MG/ML VIAL ONE (11:11)
--- NOTE | 2017-05-05 11:12 | ERNOTE ---
Abdominal HPI - Narrative Date of Service: 05/05/17 - General Chief Complaint: General Assessment Time Seen by Provider: 05/05/17 10:49 Source: patient, family, RN notes reviewed, past records Exam Limitations: no limitations - Immun/Allergies/Home Medications Immunizatons: IMMUNIZATION HX Immunizations Up to Date Yes History of Influenza Vaccine No Hx Pneumococcal Vaccination No Allergies/Adverse Reactions: Allergies morphine Adverse Reaction (Intermediate, Verified 05/05/17 10:43) DIFF BREATHING HEATHER Inhibitors Adverse Reaction (Mild, Verified 05/05/17 10:43) COUGH nitrofurantoin [From Macrobid] Adverse Reaction (Mild, Verified 05/05/17 10:43) STOMACH PAIN Sulfa (Sulfonamide Antibiotics) Adverse Reaction (Mild, Verified 05/05/17 10:43) JOINT PAIN Home Medications: HOME MEDICATIONS Atorvastatin Calcium [Lipitor] 20 mg PO DAILY 10/12/14 [Last Taken 07/01/15] Sertraline HCl [Zoloft] 50 mg PO DAILY 10/12/14 [Last Taken 07/01/15] Zolpidem Tartrate [Ambien] 10 mg PO HS 10/12/14 [Last Taken 06/30/15] metFORMIN HCL [Glucophage] 500 mg PO BIDWM 10/12/14 [Last Taken 07/01/15] Losartan Potassium [Cozaar] 100 mg PO DAILY 05/09/16 [Last Taken Unknown] Blood-Glucose Meter [Blood Glucose Monitoring] 1 each MC DAILY 09/21/16 [Last Taken Unknown] Diazepam [Valium] 5 mg PO QAM 09/21/16 [Last Taken Unknown] Diazepam [Valium] 10 mg PO HS 09/21/16 [Last Taken Unknown] Estrogens, Conjugated [Premarin] 1 applic VG 2XW 09/21/16 [Last Taken Unknown] Levothyroxine Sodium [Synthroid] 25 mcg PO DAILY 09/21/16 [Last Taken Unknown] Tazarotene [Tazorac] 1 applic TP DAILY 09/21/16 [Last Taken Unknown] Wheat Dextrin [Benefiber] 1 tbs PO DAILY 09/21/16 [Last Taken Unknown] Montelukast Sodium [Singulair] 10 mg PO DAILY 02/10/17 [Last Taken Unknown] Cholecalciferol (Vitamin D3) [Vitamin D3] 1,000 unit PO DAILY 11/21/17 [Last Taken Unknown] - History of Present Illness Narrative: Samantha is a 72 year old female brought to the ED by her for abdominal pain. She had a hernia repair at [facility] on 04/30. Her pain has been gradually increasing since. She states that she has been having a bowel movement once a day and does not feel that she is constipated. She has had brief episodes of nausea but no vomiting. She denies fevers or chills. She has been taking Tylenol #3 twice a day. Date (Duration): 04/30/17 Timing: getting worse, intermittent Quality: moderate, sharpness Prior Treatment: Present: recently seen, treated by physician. Absent: currently on antibiotics Review of Systems - Review of Systems Constitutional: Present: decreased activity level. Absent: recent illness, fever, chills EYE: Present: no symptoms reported ENT: Present: no symptoms reported Respiratory: Absent: shortness of breath, cough Cardiology: Absent: chest pain, palpitations, syncope Gastrointestinal/Abdominal: Present: abdominal pain. Absent: vomiting, diarrhea , eating less, drinking less Genitourinary: Present: dysuria. Absent: frequency, hematuria Musculoskeletal: Absent: joint pain, joint swelling Skin: Absent: rash, lesions, lumps Neurological: Absent: headache, dizziness/light-headedness Endocrine: Present: no symptoms reported Hematologic/Lymphatic: Absent: easy bruising, easy bleeding Psych: Present: anxiety - Patient's Past Medical History Patient History - Medical: Anemia, Anxiety, Diabetes Type 2, Depression, GERD, Hypothyroidism, Kidney stone, UTI'S Patient History - Cardiac/Respiratory: Hypertension, Hyperlipidemia Patient History - Cancer: No Hx of Cancer Patient History - Surgical Procedures: Cataracts, Cholecystectomy, Other, Hernia Repair, Orthopedic, Urology Patient History - Other: None LMP (females 10-50): Menopausal - Family History Mother Family History - Medical: , Diabetes Type 2 Family History - Cardiac/Respiratory: CVA/Stroke, Hypertension Family History - Cancer: No pertinent family hx Father Family History - Medical: , No pertinent hx Family History - Cardiac/Respiratory: CHF, COPD Family History - Cancer: No pertinent family hx Sister Family History - Medical: Arthritis, Diabetes Type 2, Dementia Family History - Cardiac/Respiratory: No pertinent hx Family History - Cancer: No pertinent family hx Brother Family History - Medical: , Alcohol Abuse, Alzheimer's Disease, Diabetes Type 2, Dementia Family History - Cardiac/Respiratory: Coronary Heart Disease Family History - Cancer: No pertinent family hx - Social History Living Situations: spouse Abuse History: No History of abuse Psych History: Hx of Anxiety, Hx of Depression, Current tx/ever been on anti- depressants or anti-anxiety meds Smoking Status: Former smoker Alcohol Use: none Drug Use: none - Immunizations Immunizations Up to Date: Yes Hx Pneumococcal Vaccination: No History of Influenza Vaccine: No Physical Exam - Physical Exam General Appearance: Present: wd/wn, alert, mild distress Head Exam: Present: normal inspection Eye Exam: Normal inspection: bilateral Neck: Present: normal inspection, nontender, supple Respiratory: Present: no respiratory distress, normal breath sounds, no accessory muscle use, lungs clear Cardiovascular/Chest: Present: regular rate, rhythm, no murmur, normal peripheral pulses Gastrointestinal/Abdominal: Present: nondistended, tenderness - Moderate, left abdomen, abnormal bowel sounds - Sluggish, other - laparoscopic insicions without redness or drainage, induration surrounding right upper insicion Extremity Exam: Present: normal inspection, normal range of motion Neurological Exam: Present: alert, oriented, normal mood/affect, no motor/ sensory deficits Skin Exam: Present: warm/dry, pallor ED Progress - Results and Orders Patient's Lab Results:: I have reviewed the patient's lab results. - Vital Signs Patient's Vital Signs:: I have reviewed the patient's vital signs. Vital Signs: Vital Signs 05/05/17 05/05/17 10:37 10:51 Temperature 35.8 C L 35.8 C L Pulse Rate 87 87 Respiratory 14 14 Rate Blood Pressure 140/82 140/82 O2 Sat by Pulse 97 97 Oximetry - X-Ray X-Ray #1 X-Ray: abdomen Interpretation: Reviewed by me X-ray Comments: No acute intra-abdominal process, fecal retention noted - Progress/Reassessment Chief Complaint: General Assessment Progress:: Improved Departure Clinical Impression: Postoperative abdominal pain Fecal retention Qualifiers: Constipation type: unspecified constipation type Qualified Code(s): K59.00 - Constipation, unspecified - Departure Disposition: Home Follow Up Needed Condition: Stable Instructions: Constipation, Adult, [id number] Additional Instructions: Start Miralax one capful daily - decrease dose as needed if stools become too loose or too frequent Follow up with your surgeon if symptoms continue Referrals: Samson Mead MD [Primary Care Provider] -
[2017-05-05 11:15] LABS: Hematocrit 31.8 % (37.0-47.0); Hemoglobin 9.4 gm/dL (12.5-16.0); Mean Cell Volume 80.7 fl (78-100); Mean Corpuscular Hemoglobin 23.9 pg (27-31); Mean Corpuscular Hgb Conc 29.6 g/dl (32-36); Mean Platelet Volume 8.9 fl (6.0-9.5); Neutrophil # 3.6 K/mm3 (1.3-6.0); Neutrophil % 68.7 % (42-75.0); Platelet Count 177 K/mm3 (150-450); Red Blood Count 3.94 M/mm3 (4.2-5.4); Red Cell Distribution Width 16.3 % (11.5-14.0); White Blood Count 5.3 K/mm3 (4.0-10.5)
[2017-05-05 11:38] LABS: Albumin * 3.1 gm/dl (3.4-5.0); Bilirubin, Total 0.5 mg/dL (0.0-1.1); Calcium * 8.6 mg/dL (7.9-10.9); Carbon Dioxide 31.7 mmol/L (24-32.6); Potassium 3.7 mmol/L (3.4-4.6); Total Protein 6.4 gm/dL (6.2-8.2)
[2017-05-05 12:14] LABS: Urine Appearance Clear; Urine Bilirubin Negative (NEGATIVE); Urine Blood Negative /ul (NEGATIVE); Urine Color Yellow; Urine Ketone Negative (NEGATIVE); Urine Nitrite Negative (NEGATIVE); Urine Protein Negative (NEGATIVE); Urine Specific Gravity 1.015 SP.GR. (1.005-1.010); Urine Urobilinogen Normal (NORMAL); Urine pH 7.5 pH (5.0-7.0)
[2017-05-05 12:15] LABS: Urine Bacteria None Seen; Urine RBC None Seen /hpf (0-5); Urine Squamous Epithelial Cell None Seen /hpf; Urine WBC None Seen /hpf (0-5)
[2017-05-05 12:16] VITALS: BP 144/77
[2017-05-05] MEDS ORDERED: MAGNESIUM HYDROXIDE 30 ML UDC PO ONE (12:22)
[2017-05-05] MEDS ORDERED: MAGNESIUM HYDROXIDE 30 ML UDC ONE (12:29)
== END 2017-05-05 12:44 | disposition home or self-care (01) ==
LOC: ER 10:34
DX: K59.00 Constipation, unspecified (principal); G89.18 Other acute postprocedural pain; R10.9 Unspecified abdominal pain; Z87.440 Personal history of urinary (tract) infections; Z87.442 Personal history of urinary calculi; E03.9 Hypothyroidism, unspecified; E78.5 Hyperlipidemia, unspecified; F41.9 Anxiety disorder, unspecified; E11.9 Type 2 diabetes mellitus without complications; I10 Essential (primary) hypertension; Z87.891 Personal history of nicotine dependence

== ENCOUNTER 2020-04-15 08:26 | Inpatient (IN) ==
[~2020-04-15 08:26] MED LIST changes: -RINGERS SOLUTION,LACTATED 1,000 ML IV PRN; +TRANEXAMIC ACID 1,000 MG in NORMAL SALINE 100 ML IV PRN
[2020-04-15] MEDS ORDERED: ONDANSETRON HCL/PF 2 MG/ML VIAL ONE (09:25)
[2020-04-15] MEDS ORDERED: BUPIVACAINE HCL 50 ML VIAL IJ ONE (09:25)
[2020-04-15] MEDS ORDERED: PROPOFOL VIAL IV ONE (09:25)
[2020-04-15] MEDS: RINGER'S SOLUTION,LACTATED 1,000 ML IV PRN ×2 (09:25→13:05)
[2020-04-15] MEDS ORDERED: ceFAZolin SODIUM 1 GM VIAL ONE (09:43)
--- NOTE | 2020-04-15 09:53 | ANES ---
Anesthesia Pre Procedure Eval Vitals/Labs: Last Vital Signs Temp 36.7 C 04/15/20 08:46 Pulse 70 04/15/20 08:46 Resp 16 04/15/20 08:46 BP 134/76 04/15/20 08:46 Pulse Ox 96 04/15/20 08:46 HOME MEDICATIONS vitamin B complex 1 tab PO DAILY 04/18/18 [Last Taken Unknown] Ferrous Sulfate [Iron] 325 mg PO 3XW 09/27/18 [Last Taken Unknown] albuterol sulfate 90 mcg/actuation aerosol inhaler 1 inh IH QID PRN #6.7 g 05/27/19 [Last Taken Unknown] blood sugar diagnostic See Rx Instructions .ROUTE .MEDSUPPLY #100 ea 05/27/19 [Last Taken Unknown] gabapentin 300 mg capsule 300 mg PO BID #180 cap 09/23/19 [Last Taken Unknown] escitalopram oxalate 10 mg tablet 10 mg PO DAILY #90 tab 10/07/19 [Last Taken Unknown] atorvastatin 40 mg tablet 40 mg PO DAILY #90 tab 11/13/19 [Last Taken Unknown] metformin 500 mg tablet 500 mg PO BID #180 tab 11/13/19 [Last Taken Unknown] conjugated estrogens 0.625 mg/gram vaginal cream 0.625 mg VG .QOD 90 Days #30 g 12/03/19 [Last Taken Unknown] mirtazapine 15 mg tablet 15 mg PO HS #90 tab 12/11/19 [Last Taken Unknown] clotrimazole 1 % topical cream 1 applic TP BID 28 Days #12 g 01/06/20 [Last Taken Unknown] polyethylene glycol 3350 17 gram/dose oral powder 17 g PO DAILY #238 g 02/10/20 [Last Taken Unknown] acetaminophen 500 mg tablet 500 mg PO .every 12 hours PRN tab 02/23/20 [Last Taken Unknown] meloxicam 15 mg tablet 15 mg PO DAILY PRN #90 tab 03/30/20 [Last Taken Unknown] Cyanocobalamin (Vitamin B-12) [Vitamin B12] 2,500 mcg PO DAILY 04/15/20 [Last Taken Unknown] Allergies/Adverse Reactions: Allergies Allergy/AdvReac Type Severity Reaction Status Date / Time morphine Allergy Severe DIFF Verified 04/15/20 08:57 BREATHING tree and shrub pollen Allergy Mild rhinitis Verified 04/15/20 08:57 clavulanic acid Allergy Unknown unknown Verified 04/15/20 08:57 [From Augmentin] HEATHER Inhibitors AdvReac Mild COUGH Verified 04/15/20 08:57 amoxicillin [From Augmentin] AdvReac Mild muscle Verified 04/15/20 08:57 aches nitrofurantoin AdvReac Mild STOMACH Verified 04/15/20 08:57 [From Macrobid] PAIN Sulfa (Sulfonamide AdvReac Mild JOINT PAIN Verified 04/15/20 08:57 Antibiotics) - Planned Procedure Planned Procedure: Left Arthroplasty Total Shoulder Reverse Medication List Reviewed:: Yes Allergies Verified: Yes Medical History (Last Reviewed 04/15/20 @ 09:51 by Blayne De León CRNA) Degenerative joint disease, shoulder, left (Chronic) Onset Date: Unknown Shoulder pain (Acute) Onset Date: Unknown Left Generalized anxiety disorder (Acute) Suspected panic attacks Umbilical hernia (Chronic) 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) Urgency of urination (Acute) Weakness (Acute) Weight loss (Chronic) Insomnia (Chronic) Cervical radiculopathy (Acute) Diabetes (Chronic) Hypertension (Chronic) Iron deficiency anemia secondary to inadequate dietary iron intake (Chronic) Hypokalemia (Acute) Hypoalbuminemia due to protein-calorie malnutrition (Chronic) Sacroiliitis (Acute) Former tobacco use Lives with spouse Seldom use of alcohol Wears dentures top full Wears glasses hernia in colon Acquired hypothyroidism Allergic rhinitis Anemia Cervical disc disorder Depression Diabetes mellitus type 2, controlled Essential hypertension Fibroid uterus Hyperlipidemia Panic attacks Postmenopausal atrophic vaginitis Psoriasis Rectocele Sigmoid diverticulitis Ventral hernia without obstruction or gangrene Vulvar atrophy Abdominal pain (Resolved) Altered mental status (Resolved) Anxiety (Resolved) Back muscle spasm (Resolved) Back pain (Resolved) Bronchitis (Resolved) Candidiasis of vulva and vagina Chest pain (Resolved) Chest pain in adult (Resolved) Constipation (Resolved) Contusion of scalp (Resolved) Depression (Resolved) Fall (Resolved) Fatigue (Resolved) Flank pain (Resolved) Fracture of radius and ulna, closed Kidney stone Medication side effect (Resolved) Pelvic pain Postoperative abdominal pain (Resolved) Pyelonephritis (Resolved) Sepsis (Resolved) Urinary tract infection (Resolved) Vulvar itching Vulvar pain Wrist fracture, right (Resolved) Surgical History (Last Reviewed 04/15/20 @ 09:51 by Blayne De León CRNA) Cataract Onset Date: 05/24/10 05/10/10-left, 05/24/10-right S/P epidural steroid injection H/O arthroscopy of shoulder Onset Date: 10/06/16 [place]-Left, labral debridement, biceps tenotomy, chondroplasy humeral head, SAD, Parvin procedure H/O excision of ganglion cyst Onset Date: ~1989 [place]-left foot H/O hernia repair Onset Date: 04/30/17 incisional x2. 04/30/17 Dr Busby [id number] ventral hernia. H/O lithotripsy Onset Date: Unknown H/O tooth extraction top History of breast biopsy Onset Date: ~05/04/06 stereotactic core bx right breast-benign History of cholecystectomy Onset Date: ~1997 Delfranciscomutt-open Hx of barium enema Onset Date: 11/08/10 sigmoid diverticulosis Hx of colonoscopy Onset Date: 03/15/[id number], redundant colon. ?. 03/15/17 [facility]- tubular adenoma. [place] teeth extracted Onset Date: ~1978 Family History (Last Reviewed 04/15/20 @ 09:51 by Blayne De León CRNA) Brother , age 60-dementia Alzheimers disease Dementia Father , age 76-CHF CHF (congestive heart failure) COPD (chronic obstructive pulmonary disease) Sister Diabetes Arthritis Dementia Mother , age 72-stroke Diabetes Hypertension CVA (cerebral vascular accident) Brother Heart problem Brother , age 70-heart disease Heart disease Brother , age 50's-heart disease Heart disease Daughter Asthma Thyroid disease Son Obesity spleen problem Back problem - Family Anesthesia History Family History:: no untoward family reactions to anesthesia - Airway/Neck/Teeth Denture Type: Full upper Neck Exam: full range of motion Mallampatti Score: 2 Mandibulo Hyoid distance: > 3 cm - Respiratory Respiratory Physical: lungs clear Smoking Status: Former smoker - Cardiovascular Cardiac History: hypertension Heart Sounds: S1 & S2 - Gastrointestinal NPO since: mn - Anesthesia Assessment and Plan Anesthesia Type Plan: General LMA - interscalene nerve block
--- NOTE | 2020-04-15 13:17 | OR ---
Operative Report - Dictated Report Narrative: DATE OF PROCEDURE: 04/15/2020 PHYSICIAN: Zohaib Gunn MD ARCHITECTURAL SALES CONSULTANT: Amador Kerr PA-C (provided and essential set of skilled, educated hands that assisted with transfer, positioning, prepping, draping, manipulation, retraction, placement of implants, irrigation, closure wounds, and application of dressings all which cannot be performed by the available surgical crew) PREOPERATIVE DIAGNOSIS: Left rotator cuff deficient shoulder arthrosis. POSTOPERATIVE DIAGNOSIS: Left rotator cuff deficient shoulder arthrosis. OPERATIONS AND PROCEDURES: Left reverse total shoulder arthroplasty. ANESTHESIA: General plus regional. COMPLICATIONS: None. DRAINS: None. SPECIMENS: Bone. ESTIMATED BLOOD LOSS: 50 mL. RETAINED IMPLANTS: 1. DePuy Delta Xtend cementless metaglene. 2. Delta Xtend glenosphere, 38 mm standard. 3. Delta Xtend size 8 modular humeral EAST-coated cementless stem. 4. Size 1 left modular eccentric epiphysis EAST-coated cementless. 5. Delta Xtend standard polyethylene size 38plus 3 mm. 6. Metaglene locking screws, 24 mm and 36 mm in length. 7. Nonlocking metaglene screws, 24 mm x 1 . INDICATIONS FOR PROCEDURE: Mrs. Piper is a 75-year-old female with significant past history of rotator cuff tears and deficiency. She had treated these conservatively and had an irreparable rotator cuff with some progression of arthrosis of the shoulder and difficulty with activities of daily living in pain. She was seen in clinic and had failed conservative measures. She wished to proceed with surgical treatment. The risks, benefits, and alternatives were discussed in clinic, including the risk of , blood clots, bleeding, infection, nerve/tendon/blood vessel injury, malposition of components, failure of components, wear or limited range of motion, stiffness, and need for additional procedures, and she wished to proceed. Consent was obtained here in the clinic. DESCRIPTION OF PROCEDURE: After marking the correct extremity in the preoperative holding area, the patient was taken to the operating room. A timeout was performed. IV antibiotics consisting of Ancef were administered prior to procedure. The regional followed by general anesthetic was induced by the nurse display manager at my request. She was then transitioned to beach chair position with all bony prominences well padded. The head in neutral, legs with SCDs and supported,and the nonoperative arm supported. The surgical arm was prescrubbed with alcohol then prepped and draped in the standard sterile fashion and the skin was covered with ioban. A deltopectoral incision was made and blunt dissection was carried down through the skin. The cephalic vein was identified, protected, and retracted. We then went through the deltopectoral interval, exposing the proximal humerus. It was noted that there was no rotator cuff, supraspinatus and infraspinatus tendon, or teres minor tendon. The subscapularis was intact as well as the biceps. A tag suture was placed in subscapularis tendon as well as the anterior capsule, and this was elevated off the anterior humerus passing along the bicipital groove and into the rotator cuff interval, exposing the proximal humerus. This was then freed off the proximal humerus. A biceps tenotomy was performed and the shoulder was dislocated. The humeral head was noted to show signs of arthrosis. Next, an entry drill was placed down the humerus centered on the longitudinal axis entering off just onto the articular surface on the humeral head. Next were serial reamers up to the size 8 were utilized, which gave good overall cortical contact. Next, a proximal humeral head cut was performed. We made the cut at approximately 15 degrees of retroversion. This appeared to resect an appropriate amount of humeral head. This was then pinned into place and an oscillating saw was utilized to cut this humeral head, protecting the surrounding soft tissues. We then placed a cap over the proximal humerus and turned our attention to the glenoid. The soft tissues were then elevated off the humeral neck as well as circumferentially around the glenoid. The glenoid was exposed. The remaining biceps tendon and labrum were resected. Using tractors, the glenoid was exposed and a guidewire was placed just posterior and inferior to the center of the glenoid. This was made so that it directed slightly superiorly but otherwise perpendicular to the glenoid on the axillary plane. Protecting the surrounding soft tissues, a reamer was utilized in order to remove the remaining cartilage. A garage hand was utilized in order to resect the superior cartilage, and this resulted in a good overall appearance of the glenoid. The center drill lug hole was drilled and had good circumferential bone. The metaglene was then impacted into place and oriented for placement of screws along the mid plane in the supe rior and inferior quadrants of the glenoid as well as anterior to posterior screws. These were drilled and had appropriate overall length of screws on the superior and inferior metaglene screws. Good purchase was obtained with a 36 mm screw superiorly and 24 mm screw inferiorly. The anterior and posterior screws were drilled and 24 mm anterior nonlocking screw was placed. We then locked the superior and inferior screws into place. This gave good overall compression down to the glenoid with flat overall appearance and an appropriate alignment. We returned our attention to the proximal humerus. The proximal humeral reaming guide was placed for an eccentric reamer. This was utilized in order to prepare the proximal humerus. The trial stem was assembled on the back table and impacted into place. After placing the trial stem, we then returned to the metaglene. The glenosphere was then secured to the metaglene, impacted, and tightened ensuring that this was seated completely. We then returned to the humeral component and placed the trials of polyethylene inserts and found that the 3 mm gave good overall longitudinal traction with no gapping. The shoulder was able to reach 150 degrees of forward flexion and 140 degrees of abduction, external rotation was to 90 degrees and with fulcrum and armpit were unable to hinge the joint out of place, and there was no essentially no gapping of the polyethylene off the humeral head nor any signs of impingement on the glenoid neck. We felt that these were the appropriately placed and sized implants. We then dislocated the shoulder, removed the trial implants, thoroughly irrigated the humerus, impacted the final implants into place in the prior determined retroversion. The trial polyethylene was utilized again and was noted that the actual stem and the trial stem were equal in tension, and thus the final polyethylene was impacted into place. The shoulder was reduced, again noted to be stable, was then thoroughly irrigated. The subscapularis and biceps tendon were secured to the surrounding soft tissues using a #1 Ethibond suture. The deltopectoral interval was closed with #0 Vicryl. The deep tissues were then closed with #0 Vicryl, subcutaneous with 3-0 Monocryl, and the skin with ember. Xeroform, 4 x 4, ABD, soft roll, and full arm Tobias was applied. The patient was placed in a shoulder sling, awoken, and transferred to postanesthesia care in stable condition. All sponge, needle, and instrument counts were correct prior to closing the wounds. We will obtain postoperative films and be admitted to the floor for postoperative pain control, IV antibiotics, and starting of physical therapy. I anticipate a one to two night hospital stay.
[2020-04-15] MEDS ORDERED: oxyCODONE HCL/ACETAMINOPHEN 1 TAB TABLET PO PRN (13:18)
[2020-04-15] MEDS ORDERED: ZOLPIDEM TARTRATE 5 MG TABLET PO PRN (13:18)
[2020-04-15] MEDS ORDERED: diphenhydrAMINE HCL 50 MG/ML VIAL IV PRN (13:18)
[2020-04-15] MEDS ORDERED: RINGER'S SOLUTION,LACTATED 1,000 ML IV PRN (13:18)
[2020-04-15] MEDS ORDERED: MAGNESIUM HYDROXIDE 30 ML UDC PO PRN (13:18)
[2020-04-15] MEDS ORDERED: MAG HYDROX/ALUMINUM HYD/SIMETH 30 ML UDC PO PRN (13:18)
[2020-04-15] MEDS ORDERED: ONDANSETRON HCL/PF 2 MG/ML VIAL IV PRN (13:18)
[2020-04-15] MEDS ORDERED: ACETAMINOPHEN 500 MG TABLET PO PRN (13:18)
[2020-04-15] MEDS ORDERED: HYDROmorphone HCL 1 MG/ML DISP.SYRIN IV PRN (13:18)
[2020-04-15] MEDS ORDERED: ALBUTEROL SULFATE 2.5 MG/0.5 ML VIAL.NEB IH PRN (13:21)
--- NOTE | 2020-04-15 13:39 | ANES ---
Post Anesthesia Discharge - Transfer of Care Transfer of Care handoff given to nurse: Yes - Discharge from PACU Discharge from PACU when meets criteria: Yes
--- NOTE | 2020-04-15 13:42 | ANES ---
Anesthesia Procedure Note Procedure Note: ANESTHESIA PROCEDURE NOTE Date of procedure: 04/15/2020. Time of procedure: 1130. Performed by: Tito De León CRNA User Experience Team Lead: Alanis Monique RN . Preprocedure diagnosis: Left shoulder DJD. Post procedure diagnosis: Same. Procedure: Ultrasound-guided left interscalene nerve block Indications: Postoperative analgesia. Findings: Patient brought to operating room #2 and given a general anesthetic induction with LMA insertion. The patient was placed in semi-Fowlers position. Left side of patient's neck was prepped with ChloraPrep. Ultrasound utilized to identify the brachial plexus in the left interscalene groove. A 22-gauge 2 inch regional block needle was advanced under ultrasound guidance until tip of needle was placed just anterior to brachial plexus. A nerve stimulator was also utilized with muscle twitch noting with decreasing intensity from 0.8 mA to 0.5 mA. Muscle twitch disappeared at 0.5 mA. 20 mL of 0.5% Marcaine was injected with adequate spread of local anesthesia noted. Regional block needle was then repositioned and placed just posterior to brachial plexus. Tip of needle was visualized throughout procedure. A second dose of 20 mL of 0.5% Marcaine was injected again with adequate spread of local anesthesia noted. Regional block needle was removed intact. EBL: Minimal. Fluids: N/A. Specimen: N/A. Post procedure condition: The patient tolerated the procedure well. No complications were noted. Thank you for this consultation Tito De León CRNA
--- NOTE | 2020-04-15 13:54 | ANES ---
Post Anesthesia Assessment - Vital Signs Vitals: Last Vital Signs Temp 36 C 04/15/20 13:30 Pulse 70 04/15/20 13:50 Resp 18 04/15/20 13:50 BP 153/87 H 04/15/20 13:50 Pulse Ox 96 04/15/20 13:50 Airway Patency: Normal - Mental Status Level Of Consciousness: Awake - Pain Level Pain Score: 0 - N/V Assessment Nausea/Vomiting Presence: None Dehydration:: No
[2020-04-15] MEDS: KETOROLAC TROMETHAMINE 15 MG/ML VIAL IV SCH ×2 (14:07→19:30)
[2020-04-15] MEDS: ceFAZolin SODIUM 1 GM in DEXTROSE 5 % IN WATER 100 ML IV SCH ×4 (15:52→21:03)
[2020-04-15] MEDS: ASPIRIN 325 MG TABLET.DR PO SCH (20:58)
[2020-04-15] MEDS: metFORMIN HCL 500 MG TABLET PO SCH (20:59)
[2020-04-15] MEDS ORDERED: MIRTAZAPINE 15 MG TABLET PO SCH (21:00)
[2020-04-15] MEDS: GABAPENTIN 300 MG CAPSULE PO SCH (21:00)
[2020-04-15] MEDS ORDERED: SENNOSIDES/DOCUSATE SODIUM 1 TAB TABLET PO SCH (21:00)
[2020-04-15] MEDS ORDERED: ROSUVASTATIN CALCIUM 20 MG TABLET PO SCH (21:00)
[2020-04-15] MEDS: CLOTRIMAZOLE 15 APPL TUBE TP SCH (21:00)
[2020-04-16] MEDS: KETOROLAC TROMETHAMINE 15 MG/ML VIAL IV SCH ×2 (01:45→07:22)
[2020-04-16] MEDS: ceFAZolin SODIUM 1 GM in DEXTROSE 5 % IN WATER 100 ML IV SCH ×2 (03:31)
[2020-04-16] MEDS: ASPIRIN 325 MG TABLET.DR PO SCH (08:54)
[2020-04-16] MEDS: GABAPENTIN 300 MG CAPSULE PO SCH (08:54)
[2020-04-16] MEDS: metFORMIN HCL 500 MG TABLET PO SCH (08:54)
[2020-04-16] MEDS: CLOTRIMAZOLE 15 APPL TUBE TP SCH (08:58)
[2020-04-16] MEDS ORDERED: CYANOCOBALAMIN 1,000 MCG TABLET PO SCH (09:00)
[2020-04-16] MEDS ORDERED: POLYETHYLENE GLYCOL 3350 17 GM PACKET PO SCH (09:00)
[2020-04-16] MEDS ORDERED: FERROUS SULFATE 325 MG TABLET PO SCH (09:00)
[2020-04-16] MEDS ORDERED: ESCITALOPRAM OXALATE 10 MG TAB PO SCH (09:00)
[2020-04-16] MEDS ORDERED: VITAMIN B COMP W-C 1 TAB TABLET PO SCH (09:00)
--- NOTE | 2020-04-16 11:52 | DS ---
(1) Status post reverse arthroplasty of left shoulder Problem: Acute (2) Atrophic vulvovaginitis Problem: Chronic (3) Cervical radiculopathy Problem: Chronic (4) Dementia Problem: Chronic Qualifiers: (5) Generalized anxiety disorder Problem: Chronic (6) Temporal arteritis syndrome Problem: Chronic (7) Urinary incontinence Problem: Chronic (8) Cough Problem: Chronic (9) Diabetes Problem: Chronic Qualifiers: (10) Hypertension Problem: Chronic Qualifiers: (11) Insomnia Problem: Chronic Qualifiers: (12) Iron deficiency anemia secondary to inadequate dietary iron intake Problem: Chronic Date of Discharge:: 04/16/20 Hospital Course: Mrs. Piper was admitted to the floor after undergoing left reverse total shoulder arthroplasty. Tolerated this well. Was admitted to the floor postoperatively for 24 hours of IV antibiotics, pain control, medical comanagement, and occupational and physical therapy. OT and PT were consulted to assist with activities of daily living and ambulation. Was made non- weightbearing with restricted external rotation. She was placed in a shoulder immobilizer.. Pain was initially controlled with IV regimen. This was transitioned to oral once tolerating a by mouth intake. Was resumed on home diet and medications. A Magallanes catheter was inserted in the operating room which was discontinued by postoperative day 1. Aspirin and SCDs were utilized for DVT prophylaxis. Vital signs remained stable to the hospital course. Physical examination throughout the hospital course showed an extremity that had sensation that was intact to light touch, palpable pulses, a benign wound, motor intact to the wrists, fingers, and elbow. Once an oral pain regimen was tolerated and physical therapy goals were met, it was felt that they were stable for discharge to home. Instructions: Continue with non-weightbearing and restricted external rotation. Use the immobilizer as instructed. Do not bathe or soak the wound. Keep the wound cl efrain and dry and cover with dry gauze and tape. Change every 2-3 days as needed if there is any drainage. Cover wound while showering. Continue with physical therapy. Resume home diet. Report any fever over 101.5 Fahrenheit, uncontrolled pain, increased drainage, foul odor of drainage, new or increased calf pain or shortness of breath, or any other significant complaints. 325mg twice daily aspirin will be continued until instructed otherwise. No driving until instructed otherwise. Follow up in approximately 2-3 weeks. Procedures Performed: see notes below List Procedures: Left reverse total shoulder arthroplasty Disposition: Home self-care Condition: Good Discharge Activity: Non-Weight bearing, Other - Shoulder restrictions Discharge Diet: Consistent carbs Referrals: Simran Dickson DO [Primary Care Provider] - Additional Patient Instructions (free text): Physical therapy at [facility] outpatient rehab department on SundayApril 19 at 11:00am. Follow up orthopedics appointment on SundayApril 28 at 9 AM. Prescriptions (Any new or edited meds): Aspirin [Aspirin Enteric Coated] 325 mg PO BID #60 tablet.dr Transmission Status: Pending to [place] oxyCODONE HCL/ACETAMINOPHEN [Percocet 5 MG/325 MG] 1 - 2 tab PO Q4H PRN #50 tab PRN Reason: Moderate Pain (Pain Scale 4-6) Transmission Status: Received by [place] Sennosides/Docusate Sodium [Senokot-S] 2 tab PO HS #60 tab Transmission Status: Pending to [place] Complete Home Medications List: Complete Home Medication List: vitamin B complex 1 tab PO DAILY 04/18/18 Ferrous Sulfate [Iron] 325 mg PO 3XW 09/27/18 albuterol sulfate 90 mcg/actuation aerosol inhaler 1 inh IH QID PRN #6.7 g 05/27/19 blood sugar diagnostic See Rx Instructions .ROUTE .MEDSUPPLY #100 ea 05/27/19 gabapentin 300 mg capsule 300 mg PO BID #180 cap 09/23/19 escitalopram oxalate 10 mg tablet 10 mg PO DAILY #90 tab 10/07/19 atorvastatin 40 mg tablet 40 mg PO DAILY #90 tab 11/13/19 metformin 500 mg tablet 500 mg PO BID #180 tab 11/13/19 conjugated estrogens 0.625 mg/gram vaginal cream 0.625 mg VG .QOD 90 Days #30 g 12/03/19 mirtazapine 15 mg tablet 15 mg PO HS #90 tab 12/11/19 clotrimazole 1 % topical cream 1 applic TP BID 28 Days #12 g 01/06/20 polyethylene glycol 3350 17 gram/dose oral powder 17 g PO DAILY #238 g 02/10/20 meloxicam 15 mg tablet 15 mg PO DAILY PRN #90 tab 03/30/20 Cyanocobalamin (Vitamin B-12) [Vitamin B12] 2,500 mcg PO DAILY 04/15/20 Aspirin [Aspirin Enteric Coated] 325 mg PO BID #60 tablet. 04/16/20 Sennosides/Docusate Sodium [Senokot-S] 2 tab PO HS #60 tab 04/16/20 oxyCODONE HCL/ACETAMINOPHEN [Percocet 5 MG/325 MG] 1 - 2 tab PO Q4H PRN #50 tab 04/16/20 Amb Orders for Discharge: OT Evaluation and Treatment Location: None Selected
[2020-04-16 15:50] VITALS: BP 125/68
== END 2020-04-16 15:06 | disposition home or self-care (01) | DRG 483 ==
LOC: MS 08:26 → EDSTATUS 11:30
PROVIDERS: ADMIT Orthopaedic Surgery; ATTEND Orthopaedic Surgery
DX: M19.012 Primary osteoarthritis, left shoulder